=== PATIENT | male | born 1955 | race Caucasian/White ===

== ENCOUNTER 2022-02-26 12:12 | Inpatient (IN) ==
[2022-02-26] MEDS ORDERED: Ondansetron 4 MG/2 ML VIAL IVP PRN (15:40)
[2022-02-26] MEDS ORDERED: Naloxone 0.4 MG/ML INJ IVP PRN (15:40)
[2022-02-26] MEDS ORDERED: Ipratropium/Albuterol Neb 3 ML IH PRN (16:10)
[2022-02-26] MEDS ORDERED: Nitroglycerin 0.4 MG TAB.SUBL SL PRN (16:32)
[2022-02-26] MEDS ORDERED: *HR* Heparin 5,000 UNIT/ML VIAL SQ SCH (18:00)
[2022-02-26] MEDS: Budesonide/Formoterol 160/4.5 1 PUFF INH IH SCH (20:35)
[2022-02-27 04:48] LABS: Hemoglobin 16.4 g/dL (12.9-16.9); Mean Corpuscular Hemoglobin 32.9 pg (28.0-33.3); Red Cell Distribution Width 14.8 % (11.5-14.5)
[2022-02-27 04:50] LABS: Basophils % 0.1 %; Eosinophils % 0.2 %; Hematocrit 50.8 % (37.5-50.1); Immature Granulocytes % 0.5 % (0-4); Immature Platelets 17.9 % (1.1-6.1); Lymphocytes # 0.4 K/mcL (0.6-4.6); Lymphocytes % 2.9 %; Mean Corpuscular HGB Conc 32.3 g/dL (31.6-35.5); Mean Corpuscular Volume 101.8 fL (83.0-100.0); Mean Platelet Volume 12.8 fL (9.4-12.4); Monocytes # 1.1 K/mcL (0.0-1.3); Monocytes % 8.5 %; Neutrophils # 11.7 K/mcL (1.6-8.9); Red Blood Count 4.99 M/mcL (4.19-5.50); Segmented Neutrophils % 87.8 %; White Blood Count 13.3 K/mcL (4.3-11.1)
[2022-02-27 04:56] LABS: Platelet Count 18 K/mcL (140-400)
[2022-02-27 05:08] LABS: BUN/Creatinine Ratio 29 (6-26); Blood Urea Nitrogen 24 mg/dL (8-23); Calcium 9.8 mg/dL (8.6-10.3); Carbon Dioxide 38 mEq/L (23-29); Chloride 96 mEq/L (98-107); Glucose 97 mg/dL (70-105); Magnesium 2.1 mg/dL (1.6-2.6); Osmolality,Calculated 286 (280-300); Phosphorous 3.2 mg/dL (2.7-4.5); Potassium 4.5 mEq/L (3.5-5.1); Sodium 136 mEq/L (136-145); eGFR For African Americans > 60 (> 60); eGFR For Non-African Americans > 60 (> 60)
[2022-02-27] MEDS ORDERED: Regadenoson 0.4 MG/5 ML SYRINGE IVP ONE (05:56)
[2022-02-27] MEDS: Budesonide/Formoterol 160/4.5 1 PUFF INH IH SCH ×2 (08:14→20:05)
[2022-02-27] MEDS ORDERED: Aspirin Enteric Coated 81 MG Tablet PO SCH (09:00)
[2022-02-27] MEDS ORDERED: hydroCHLOROthiazide 25 MG TABLET PO SCH (09:00)
[2022-02-27] MEDS: atenoloL 50 MG TABLET PO SCH (09:19)
[2022-02-27 10:00] LABS: Basophils % 0.1 %
[2022-02-27 10:02] LABS: Eosinophils % 0.3 %; Hemoglobin 17.5 g/dL (12.9-16.9); Immature Granulocytes % 0.3 % (0-4); Immature Platelets 19.9 % (1.1-6.1); Lymphocytes # 0.4 K/mcL (0.6-4.6); Lymphocytes % 2.9 %; Mean Corpuscular HGB Conc 31.4 g/dL (31.6-35.5); Monocytes # 1.2 K/mcL (0.0-1.3); Monocytes % 9.7 %; Neutrophils # 10.3 K/mcL (1.6-8.9); Red Blood Count 5.47 M/mcL (4.19-5.50); Red Cell Distribution Width 14.7 % (11.5-14.5); Segmented Neutrophils % 86.7 %; White Blood Count 11.9 K/mcL (4.3-11.1)
[2022-02-27 10:12] LABS: Hematocrit 55.8 % (37.5-50.1)
[2022-02-27 10:16] LABS: Platelet Count 14 K/mcL (140-400)
[2022-02-27 11:18] LABS: Hepatitis B Core IgM Nonreactive (Nonreactive); Hepatitis C Virus Antibody Nonreactive (Nonreactive)
[2022-02-27 11:20] LABS: Hepatitis A Antibody IgM Nonreactive (Nonreactive)
[2022-02-27] MEDS ORDERED: 0.9 % Sodium Chloride 250 ML ONE (12:44)
[2022-02-27 13:18] LABS: Immature Reticulocyte % 11.5 % (11.0-38.0); Retculocyte # 0.07 M/mcL (0.05-0.10); Reticulocyte % 1.5 % (1.6-2.8)
[2022-02-27 14:16] LABS: INR 1.1; Prothrombin Time 12.1 Seconds (9.4-12.1)
[2022-02-27 14:19] LABS: Activated Partial Thrombo Time 26.3 Seconds (26.0-36.0)
[2022-02-27] MEDS: Dexamethasone Sodium Phos/PF 10 MG/ML VIAL IVP SCH (15:50)
[2022-02-28 03:02] LABS: White Blood Count 6.9 K/mcL (4.3-11.1)
[2022-02-28 03:03] LABS: Basophils % 0.1 %; Hematocrit 52.9 % (37.5-50.1); Hemoglobin 17.3 g/dL (12.9-16.9); Immature Granulocytes % 0.3 % (0-4); Immature Platelets 21.4 % (1.1-6.1); Lymphocytes # 0.1 K/mcL (0.6-4.6); Lymphocytes % 1.4 %; Mean Corpuscular HGB Conc 32.7 g/dL (31.6-35.5); Mean Corpuscular Hemoglobin 32.3 pg (28.0-33.3); Mean Corpuscular Volume 98.7 fL (83.0-100.0); Monocytes # 0.1 K/mcL (0.0-1.3); Monocytes % 0.7 %; Neutrophils # 6.7 K/mcL (1.6-8.9); Red Blood Count 5.36 M/mcL (4.19-5.50); Red Cell Distribution Width 14.2 % (11.5-14.5); Segmented Neutrophils % 97.5 %
[2022-02-28 03:05] LABS: Platelet Count 8 K/mcL (140-400)
[2022-02-28 03:19] LABS: BUN/Creatinine Ratio 31 (6-26); Blood Urea Nitrogen 22 mg/dL (8-23); Calcium 9.5 mg/dL (8.6-10.3); Carbon Dioxide 36 mEq/L (23-29); Chloride 95 mEq/L (98-107); Glucose 142 mg/dL (70-105); Osmolality,Calculated 288 (280-300); Phosphorous 4.2 mg/dL (2.7-4.5); Potassium 4.2 mEq/L (3.5-5.1); Sodium 136 mEq/L (136-145); eGFR For African Americans > 60 (> 60); eGFR For Non-African Americans > 60 (> 60)
[2022-02-28] MEDS ORDERED: 0.9 % Sodium Chloride 250 ML ONE (03:39)
[2022-02-28 07:08] LABS: Red Cell Distribution Width 13.9 % (11.5-14.5)
[2022-02-28 07:10] LABS: Hematocrit 50.1 % (37.5-50.1); Hemoglobin 16.4 g/dL (12.9-16.9); Immature Platelets 11.2 % (1.1-6.1); Mean Corpuscular HGB Conc 32.7 g/dL (31.6-35.5); Mean Corpuscular Hemoglobin 31.8 pg (28.0-33.3); Mean Corpuscular Volume 97.1 fL (83.0-100.0); Mean Platelet Volume 10.7 fL (9.4-12.4); Red Blood Count 5.16 M/mcL (4.19-5.50); White Blood Count 8.4 K/mcL (4.3-11.1)
[2022-02-28] MEDS: Budesonide/Formoterol 160/4.5 1 PUFF INH IH SCH ×2 (07:23→20:50)
[2022-02-28] MEDS: Dexamethasone Sodium Phos/PF 10 MG/ML VIAL IVP SCH (07:30)
[2022-02-28] MEDS: atenoloL 50 MG TABLET PO SCH (07:30)
[2022-03-01 04:45] LABS: Mean Corpuscular Volume 97.1 fL (83.0-100.0)
[2022-03-01 04:47] LABS: Hematocrit 49.7 % (37.5-50.1); Hemoglobin 16.4 g/dL (12.9-16.9); Immature Granulocytes % 0.5 % (0-4); Immature Platelets 32.9 % (1.1-6.1); Lymphocytes # 0.2 K/mcL (0.6-4.6); Lymphocytes % 1.4 %; Mean Platelet Volume 12.9 fL (9.4-12.4); Monocytes # 0.9 K/mcL (0.0-1.3); Monocytes % 7.8 %; Neutrophils # 10.5 K/mcL (1.6-8.9); Red Blood Count 5.12 M/mcL (4.19-5.50); Segmented Neutrophils % 90.3 %; White Blood Count 11.6 K/mcL (4.3-11.1)
[2022-03-01 05:16] LABS: Platelet Count 7 K/mcL (140-400); Platelet Estimate Marked Decrease (Normal)
[2022-03-01 05:24] LABS: BUN/Creatinine Ratio 38 (6-26); Blood Urea Nitrogen 25 mg/dL (8-23); Calcium 9.1 mg/dL (8.6-10.3); Carbon Dioxide 36 mEq/L (23-29); Chloride 98 mEq/L (98-107); Glucose 110 mg/dL (70-105); Magnesium 1.9 mg/dL (1.6-2.6); Osmolality,Calculated 289 (280-300); Phosphorous 2.3 mg/dL (2.7-4.5); Potassium 4.1 mEq/L (3.5-5.1); Sodium 137 mEq/L (136-145); eGFR For African Americans > 60 (> 60); eGFR For Non-African Americans > 60 (> 60)
[2022-03-01] MEDS: Budesonide/Formoterol 160/4.5 1 PUFF INH IH SCH ×2 (07:44→21:01)
[2022-03-01] MEDS ORDERED: 0.9 % Sodium Chloride 250 ML ONE (08:01)
[2022-03-01] MEDS: atenoloL 50 MG TABLET PO SCH (08:13)
[2022-03-01] MEDS: Dexamethasone Sodium Phos/PF 10 MG/ML VIAL IVP SCH ×2 (08:14→09:38)
[2022-03-01] MEDS ORDERED: IVIG (wt based) Privigen 5 GM/50 ML INFUS..BTL IVC ONE (09:01)
[2022-03-01] MEDS ORDERED: Acetaminophen 325 MG TABLET PO ONE (09:04)
[2022-03-01] MEDS ORDERED: Immune Glob, Gamma (Gammagard) 20 GM/200 ML INFUS..BTL IVC ONE ×3 (09:30)
[2022-03-01] MEDS ORDERED: Immune Glob, Gamma (Gammagard) 10 GM/100 ML INFUS..BTL IVC ONE (09:30)
[2022-03-01] MEDS ORDERED: GuaiFENesin Liq 200 MG/10 ML UDC PO PRN (13:51)
[2022-03-02 02:04] LABS: Hemoglobin 15.9 g/dL (12.9-16.9); Red Cell Distribution Width 14.1 % (11.5-14.5)
[2022-03-02 02:06] LABS: Hematocrit 48.6 % (37.5-50.1); Immature Granulocytes % 0.4 % (0-4); Immature Platelets 31.6 % (1.1-6.1); Lymphocytes # 0.1 K/mcL (0.6-4.6); Lymphocytes % 0.8 %; Mean Corpuscular HGB Conc 32.7 g/dL (31.6-35.5); Mean Corpuscular Hemoglobin 32.3 pg (28.0-33.3); Mean Corpuscular Volume 98.6 fL (83.0-100.0); Monocytes # 0.7 K/mcL (0.0-1.3); Monocytes % 9.5 %; Red Blood Count 4.93 M/mcL (4.19-5.50); Segmented Neutrophils % 89.3 %; White Blood Count 7.2 K/mcL (4.3-11.1)
[2022-03-02 02:11] LABS: Neutrophils # 6.4 K/mcL (1.6-8.9); Platelet Count 4 K/mcL (140-400)
[2022-03-02 02:23] LABS: BUN/Creatinine Ratio 38 (6-26); Blood Urea Nitrogen 29 mg/dL (8-23); Calcium 9.1 mg/dL (8.6-10.3); Carbon Dioxide 37 mEq/L (23-29); Chloride 97 mEq/L (98-107); Glucose 123 mg/dL (70-105); Magnesium 2.1 mg/dL (1.6-2.6); Osmolality,Calculated 289 (280-300); Potassium 4.3 mEq/L (3.5-5.1); Sodium 136 mEq/L (136-145); eGFR For African Americans > 60 (> 60); eGFR For Non-African Americans > 60 (> 60)
[2022-03-02] MEDS: Budesonide/Formoterol 160/4.5 1 PUFF INH IH SCH ×2 (07:44→20:45)
[2022-03-02] MEDS ORDERED: IVIG (wt based) Privigen 5 GM/50 ML INFUS..BTL IVC ONE (08:25)
[2022-03-02] MEDS ORDERED: Acetaminophen 325 MG TABLET PO ONE (08:25)
[2022-03-02] MEDS ORDERED: Immune Glob, Gamma (Gammagard) 20 GM/200 ML INFUS..BTL IVC SCH ×3 (09:04→09:07)
[2022-03-02] MEDS ORDERED: Immune Glob, Gamma (Gammagard) 10 GM/100 ML INFUS..BTL IVC SCH (09:07)
[2022-03-02] MEDS: Dexamethasone Sodium Phos/PF 10 MG/ML VIAL IVP SCH (09:29)
[2022-03-02] MEDS: atenoloL 50 MG TABLET PO SCH (09:30)
[2022-03-03 01:32] LABS: Hematocrit 48.7 % (37.5-50.1); Hemoglobin 15.9 g/dL (12.9-16.9); Immature Granulocytes % 0.7 % (0-4); Lymphocytes # 0.1 K/mcL (0.6-4.6); Lymphocytes % 0.9 %; Mean Corpuscular HGB Conc 32.6 g/dL (31.6-35.5); Mean Corpuscular Hemoglobin 32.5 pg (28.0-33.3); Mean Corpuscular Volume 99.6 fL (83.0-100.0); Monocytes # 0.5 K/mcL (0.0-1.3); Monocytes % 7.3 %; Neutrophils # 6.4 K/mcL (1.6-8.9); Red Blood Count 4.89 M/mcL (4.19-5.50); Segmented Neutrophils % 91.1 %
[2022-03-03 01:35] LABS: Platelet Count 5 K/mcL (140-400); Platelet Estimate Marked Decrease (Normal)
[2022-03-03 01:49] LABS: BUN/Creatinine Ratio 38 (6-26); Blood Urea Nitrogen 26 mg/dL (8-23); Carbon Dioxide 33 mEq/L (23-29); Chloride 99 mEq/L (98-107); Glucose 112 mg/dL (70-105); Osmolality,Calculated 286 (280-300); Phosphorous 2.2 mg/dL (2.7-4.5); Sodium 135 mEq/L (136-145); eGFR For African Americans > 60 (> 60); eGFR For Non-African Americans > 60 (> 60)
[2022-03-03] MEDS: Budesonide/Formoterol 160/4.5 1 PUFF INH IH SCH ×2 (07:47→20:10)
[2022-03-03] MEDS: atenoloL 50 MG TABLET PO SCH (08:04)
[2022-03-03] MEDS: NIFEdipine XL (24 HR) 30 MG TAB.ER.24 PO SCH (08:04)
[2022-03-03] MEDS ORDERED: amLODIPine 5 MG TABLET PO SCH (09:00)
[2022-03-04 05:54] LABS: Basophils % 0.3 %; Hematocrit 47.6 % (37.5-50.1); Hemoglobin 15.8 g/dL (12.9-16.9); Lymphocytes % 3.4 %; Mean Corpuscular HGB Conc 33.2 g/dL (31.6-35.5); Mean Corpuscular Hemoglobin 32.4 pg (28.0-33.3); Mean Corpuscular Volume 97.7 fL (83.0-100.0); Red Blood Count 4.87 M/mcL (4.19-5.50); Segmented Neutrophils % 80.4 %
[2022-03-04 05:56] LABS: Eosinophils # 0.1 K/mcL (0.0-0.6); Eosinophils % 1.6 %; Immature Granulocytes % 1.6 % (0-4); Immature Platelets 30.8 % (1.1-6.1); Lymphocytes # 0.3 K/mcL (0.6-4.6); Monocytes # 0.9 K/mcL (0.0-1.3); Monocytes % 12.7 %; Red Cell Distribution Width 13.7 % (11.5-14.5); White Blood Count 7.4 K/mcL (4.3-11.1)
[2022-03-04 06:07] LABS: Platelet Count 4 K/mcL (140-400)
[2022-03-04 06:29] LABS: BUN/Creatinine Ratio 35 (6-26); Blood Urea Nitrogen 21 mg/dL (8-23); Calcium 8.9 mg/dL (8.6-10.3); Carbon Dioxide 33 mEq/L (23-29); Chloride 98 mEq/L (98-107); Glucose 77 mg/dL (70-105); Magnesium 1.8 mg/dL (1.6-2.6); Osmolality,Calculated 284 (280-300); Phosphorous 2.8 mg/dL (2.7-4.5); Potassium 3.8 mEq/L (3.5-5.1); Sodium 136 mEq/L (136-145); eGFR For African Americans > 60 (> 60); eGFR For Non-African Americans > 60 (> 60)
[2022-03-04 06:48] LABS: Platelet Estimate Marked Decrease (Normal)
[2022-03-04] MEDS: NIFEdipine XL (24 HR) 30 MG TAB.ER.24 PO SCH (07:21)
[2022-03-04] MEDS: atenoloL 50 MG TABLET PO SCH (07:21)
[2022-03-04] MEDS: Budesonide/Formoterol 160/4.5 1 PUFF INH IH SCH ×2 (07:48→19:36)
[2022-03-05 05:03] LABS: Eosinophils % 2.8 %; Red Cell Distribution Width 13.7 % (11.5-14.5)
[2022-03-05 05:05] LABS: Basophils % 0.4 %; Eosinophils # 0.2 K/mcL (0.0-0.6); Hematocrit 46.9 % (37.5-50.1); Hemoglobin 15.5 g/dL (12.9-16.9); Immature Platelets 29.1 % (1.1-6.1); Lymphocytes # 0.2 K/mcL (0.6-4.6); Lymphocytes % 3.1 %; Mean Corpuscular Hemoglobin 32.1 pg (28.0-33.3); Mean Corpuscular Volume 97.1 fL (83.0-100.0); Monocytes % 11.9 %; Neutrophils # 5.7 K/mcL (1.6-8.9); Red Blood Count 4.83 M/mcL (4.19-5.50); Segmented Neutrophils % 79.8 %; White Blood Count 7.1 K/mcL (4.3-11.1)
[2022-03-05 05:09] LABS: Monocytes # 0.8 K/mcL (0.0-1.3)
[2022-03-05 05:10] LABS: Platelet Count 8 K/mcL (140-400)
[2022-03-05 05:11] LABS: Platelet Estimate Marked Decrease (Normal)
[2022-03-05 05:24] LABS: BUN/Creatinine Ratio 28 (6-26); Blood Urea Nitrogen 19 mg/dL (8-23); Calcium 8.9 mg/dL (8.6-10.3); Carbon Dioxide 35 mEq/L (23-29); Chloride 97 mEq/L (98-107); Glucose 90 mg/dL (70-105); Magnesium 1.9 mg/dL (1.6-2.6); Osmolality,Calculated 286 (280-300); Phosphorous 4.2 mg/dL (2.7-4.5); Potassium 4.1 mEq/L (3.5-5.1); Sodium 137 mEq/L (136-145); eGFR For African Americans > 60 (> 60); eGFR For Non-African Americans > 60 (> 60)
[2022-03-05] MEDS: Budesonide/Formoterol 160/4.5 1 PUFF INH IH SCH ×2 (07:29→20:41)
[2022-03-05] MEDS: atenoloL 50 MG TABLET PO SCH (07:49)
[2022-03-05] MEDS: NIFEdipine XL (24 HR) 30 MG TAB.ER.24 PO SCH (07:49)
[2022-03-06 02:48] LABS: Mean Corpuscular Volume 97.8 fL (83.0-100.0); Red Cell Distribution Width 13.7 % (11.5-14.5)
[2022-03-06 02:50] LABS: Hematocrit 45.2 % (37.5-50.1); Hemoglobin 14.9 g/dL (12.9-16.9); Immature Platelets 27.6 % (1.1-6.1); Mean Corpuscular Hemoglobin 32.3 pg (28.0-33.3); Mean Platelet Volume 11.3 fL (9.4-12.4); Red Blood Count 4.62 M/mcL (4.19-5.50); White Blood Count 9.6 K/mcL (4.3-11.1)
[2022-03-06] MEDS: atenoloL 50 MG TABLET PO SCH (07:36)
[2022-03-06] MEDS: Furosemide 20 MG TABLET PO SCH (07:36)
[2022-03-06] MEDS: NIFEdipine XL (24 HR) 30 MG TAB.ER.24 PO SCH (07:36)
[2022-03-06] MEDS: Budesonide/Formoterol 160/4.5 1 PUFF INH IH SCH ×2 (07:37→20:03)
[2022-03-06 13:46] LABS: Basophils % 0.4 %; Eosinophils # 0.3 K/mcL (0.0-0.6); Eosinophils % 2.7 %; Hematocrit 43.9 % (37.5-50.1); Hemoglobin 14.4 g/dL (12.9-16.9); Immature Granulocytes % 2.3 % (0-4); Lymphocytes # 0.3 K/mcL (0.6-4.6); Lymphocytes % 3.2 %; Mean Corpuscular HGB Conc 32.8 g/dL (31.6-35.5); Mean Corpuscular Hemoglobin 31.9 pg (28.0-33.3); Mean Corpuscular Volume 97.1 fL (83.0-100.0); Mean Platelet Volume 13.7 fL (9.4-12.4); Monocytes % 9.3 %; Neutrophils # 8.4 K/mcL (1.6-8.9); Red Blood Count 4.52 M/mcL (4.19-5.50); Red Cell Distribution Width 13.6 % (11.5-14.5); Segmented Neutrophils % 82.1 %; White Blood Count 10.2 K/mcL (4.3-11.1)
[2022-03-06 13:49] LABS: Platelet Count 14 K/mcL (140-400)
[2022-03-07 03:08] LABS: Hematocrit 44.2 % (37.5-50.1); Hemoglobin 14.2 g/dL (12.9-16.9); Immature Platelets 23.2 % (1.1-6.1); Mean Corpuscular HGB Conc 32.1 g/dL (31.6-35.5); Mean Corpuscular Hemoglobin 31.8 pg (28.0-33.3); Mean Corpuscular Volume 98.9 fL (83.0-100.0); Mean Platelet Volume 13.5 fL (9.4-12.4); Red Blood Count 4.47 M/mcL (4.19-5.50); Red Cell Distribution Width 13.6 % (11.5-14.5)
[2022-03-07] MEDS: Budesonide/Formoterol 160/4.5 1 PUFF INH IH SCH ×2 (08:00→19:55)
[2022-03-07] MEDS: atenoloL 50 MG TABLET PO SCH (09:14)
[2022-03-07] MEDS: Furosemide 20 MG TABLET PO SCH (09:14)
[2022-03-07] MEDS: NIFEdipine XL (24 HR) 30 MG TAB.ER.24 PO SCH (09:14)
[2022-03-07 14:15] LABS: Basophils % 0.3 %; Hematocrit 44.6 % (37.5-50.1); Hemoglobin 14.6 g/dL (12.9-16.9); Mean Corpuscular HGB Conc 32.7 g/dL (31.6-35.5)
[2022-03-07 14:17] LABS: Eosinophils # 0.2 K/mcL (0.0-0.6); Immature Granulocytes % 2.1 % (0-4); Lymphocytes # 0.4 K/mcL (0.6-4.6); Lymphocytes % 3.3 %; Mean Corpuscular Hemoglobin 32.1 pg (28.0-33.3); Mean Platelet Volume 13.7 fL (9.4-12.4); Monocytes % 9.7 %; Red Blood Count 4.55 M/mcL (4.19-5.50); Red Cell Distribution Width 13.8 % (11.5-14.5); Segmented Neutrophils % 82.6 %; White Blood Count 10.6 K/mcL (4.3-11.1)
[2022-03-07 14:59] LABS: Neutrophils # 8.8 K/mcL (1.6-8.9); Platelet Count 16 K/mcL (140-400)
[2022-03-07 15:00] LABS: Large Platelets Present (Not Present); Platelet Estimate Marked Decrease (Normal)
[2022-03-08] MEDS: Budesonide/Formoterol 160/4.5 1 PUFF INH IH SCH (07:54)
[2022-03-08 08:45] LABS: Hemoglobin 14.6 g/dL (12.9-16.9)
[2022-03-08 08:47] LABS: Basophils % 0.3 %; Eosinophils # 0.2 K/mcL (0.0-0.6); Eosinophils % 2.3 %; Hematocrit 44.2 % (37.5-50.1); Immature Granulocytes % 2.5 % (0-4); Immature Platelets 21.2 % (1.1-6.1); Lymphocytes # 0.5 K/mcL (0.6-4.6); Lymphocytes % 4.4 %; Mean Corpuscular Hemoglobin 32.4 pg (28.0-33.3); Monocytes # 1.2 K/mcL (0.0-1.3); Monocytes % 11.3 %; Neutrophils # 8.2 K/mcL (1.6-8.9); Red Blood Count 4.51 M/mcL (4.19-5.50); Red Cell Distribution Width 13.9 % (11.5-14.5); Segmented Neutrophils % 79.2 %; White Blood Count 10.4 K/mcL (4.3-11.1)
[2022-03-08 08:49] LABS: Platelet Count 15 K/mcL (140-400)
[2022-03-08 08:56] LABS: Platelet Estimate Marked Decrease (Normal)
[2022-03-08] MEDS: atenoloL 50 MG TABLET PO SCH (09:19)
[2022-03-08] MEDS: Furosemide 20 MG TABLET PO SCH (09:19)
[2022-03-08] MEDS: NIFEdipine XL (24 HR) 30 MG TAB.ER.24 PO SCH (09:20)
[2022-03-08 10:56] VITALS: BP 116/66; PULSE 60; TEMP 97.4; O2SAT 96
== END 2022-03-08 11:05 | disposition home or self-care (01) | DRG 813 ==
LOC: 2ANU → SUATTDRO 13:51
PROVIDERS: ADMIT Internal Medicine; ATTEND Internal Medicine